=== PATIENT | female | born 1995 | race Caucasian/White ===

== ENCOUNTER 2021-08-23 11:24 | Outpatient (CLI) | payer OTHER, SELFPAY ==
--- NOTE | ~2021-08-23 | US_ITS ---
EXAMINATION: US transvaginal DATE: 08/23/2021 12:18 INDICATION: Ovarian cysts Comparison:Pelvic pain TECHNIQUE: Multiple transabdominal and endovaginal sonographic images of the pelvis performed. FINDINGS: The uterus measures 6.2 x 3.8 x 4.2 cm. The endometrial complex measures 7 mm. The right ovary measures 2.5 x 2.6 x 2.4 cm and the left ovary measures 5.2 x 2.7 x 4.3 cm. Interval resolution of right ovarian cyst. There are left ovarian cyst, largest measuring 2.9 cm with a smalle r 2 cm cyst. Small amount of free fluid in the pelvis. IMPRESSION: 1. Left ovarian cysts, largest measuring 2.9 cm maximum dimension. Reviewed, dictated and finalized at location A.
== END 2021-08-23 11:25 ==
LOC: MICIMG 11:26
PROVIDERS: Visit Provider Obstetrics & Gynecology
DX: R10.2 Pelvic and perineal pain (principal); N83.202 Unspecified ovarian cyst, left side
CPT/HCPCS: 76830

== ENCOUNTER 2023-04-06 14:35 | Emergency (ER) | payer OTHER, SELFPAY ==
--- NOTE | ~2023-04-06 | XR_ITS ---
EXAM: XR knee LT min 4V DATE: 04/06/2023 15:06 HISTORY: FALL, INJURY, PAIN . COMPARISON: None available. FINDINGS: Normal mineralization. No fracture or dislocation. No lytic or blastic lesion. Joint space s are maintained. No erosion or periosteal change. Soft tissues within normal limits. Small knee join t effusion. IMPRESSION: No acute osseous finding in the left knee. Reviewed, dictated and finalized at location K.
[2023-04-06 15:53] VITALS: BP 119/72; PULSE 72; RESP 16; TEMP 36.3; O2SAT 100
--- NOTE | 2023-04-06 18:16 | ED.LOWEXIN ---
HPI - Extremity Injury (Lower) General Chief Complaint: Extremity Injury, Lower Stated Complaint: LEFT KNEE INJURY Time Seen by Provider: 04/06/23 17:40 History of Present Illness HPI Narrative: 27-year-old female reports for evaluation of left knee pain after she fell 5 hours ago. Patient states she was at work and tripped over a drain that is not flush with the floor. States when she tripped, she landed directly on her left knee and has had pain since. She reports swelling, bruising and tenderness to the anterior aspect of the left knee. She is able to walk with a limp. Denies paresthesias, fever, other injuries. She did not hit her head or lose consciousness during the fall. Related Data Allergies Allergy/AdvReac Type Severity Reaction Status Date / Time amoxicillin Allergy Mild Unknown Verified 04/06/23 17:50 Review of Systems Review of Systems: CONSTITUTIONAL: Denies fever, chills EYES: Denies visual changes, redness, or discharge. ENT: Denies rhinorrhea, congestion, sore throat, or otalgia. CARDIOVASCULAR: Denies chest pain, palpitations, or edema. RESPIRATORY: Denies cough or dyspnea. GASTROINTESTINAL: Denies abdominal pain, nausea, vomiting, or diarrhea. GENITOURINARY: Denies dysuria or hematuria. SKIN: Denies rash or itching. MUSCULOSKELETAL: See HPI NEUROLOGIC: Denies headache, numbness, dizziness, or weakness. PSYCHIATRIC: Denies anxiety or depression. [facility] Past Medical History Medical History BMI 36.0-36.9,adult BMI 37.0-37.9, adult COVID Recurrent depression Tarsal tunnel syndrome Family History Family History Father IBS (irritable bowel syndrome) Arthritis, rheumatoid Depression Hypertension Hyperlipidemia Mother Obesity Sibling No problems noted. Other Diabetes mellitus Family history of coronary artery disease Social History Social History Smoking status: Never smoker Tobacco type: e-cigarettes/vaping Second hand tobacco smoke exposure: Yes Alcohol intake: current Substance use: former Substance use type: marijuana Living arrangements: with family Occupation/Education: unemployed Gender identity (if verbalized by the patient): Female Exam Narrative: GENERAL: Well-appearing, in no acute distress. HEAD: Normocephalic NECK: Supple. CHEST: No respiratory distress. Clear to auscultation, no adventitious breath sounds. HEART: Regular rate and rhythm. No murmur heard. Normal peripheral pulses. EXTREMITIES: LLE: Tenderness to the medial and lateral knee joint lines with ecchymosis inferior to the patella. No tenderness to remainder of knee or lower extremity. Full passive and active range of motion. No varus or valgus laxity. Negative anterior posterior drawer. DP pulse 2+. Sensation intact throughout. No overlying erythema or warmth to knee. SKIN: Warm, dry, no rash. NEURO: No focal deficits. Alert and oriented x3. PSYCH: Normal mood and affect. Course Vital Signs Vital signs: Vital Signs Temperature 97.3 F L 04/06/23 15:53 Pulse Rate 72 04/06/23 15:53 Respiratory Rate 16 04/06/23 15:53 Blood Pressure 119/72 04/06/23 15:53 Pulse Oximetry 100 04/06/23 15:53 Oxygen Delivery Room Air 04/06/23 15:53 Temperature 97.3 F L 04/06/23 15:53 Pulse Rate 72 04/06/23 15:53 Respiratory Rate 16 04/06/23 15:53 Blood Pressure 119/72 04/06/23 15:53 Pulse Oximetry 100 04/06/23 15:53 Oxygen Delivery Room Air 04/06/23 15:53 MDM - Extremity Injury (Lower) MDM Narrative Medical decision making narrative: 27-year-old female reports for evaluation of left knee pain after a fall that occurred 5 hours prior to arrival. Vitals stable. Exam reveals tenderness to the medial lateral joint lines with ecchymosis inferior to the patella. No overlyin
== END 2023-04-06 18:50 | disposition home or self-care (01) ==
PROVIDERS: Emergency Provider Physician Assistant; PCP Family Medicine
DX: S80.02XA Contusion of left knee, initial encounter (principal); Z86.16 Personal history of COVID-19; Z77.22 Contact with and (suspected) exposure to environmental tobacco smoke (acute) (chronic); W18.09XA Striking against other object with subsequent fall, initial encounter
CPT/HCPCS: 73564; 99283

== ENCOUNTER 2023-05-22 14:02 | Emergency (ER) | payer BC, OTHER, SELFPAY ==
--- NOTE | ~2023-05-22 | XR_ITS ---
EXAMINATION: XR foot RT 2V DATE: 05/22/2023 15:07 INDICATION: Right foot pain. TECHNIQUE: 2 views of right foot were obtained. COMPARISON: Right foot radiograph 05/07/2010 FINDINGS: Bone alignment is normal. No fracture. There is mild osteoarthritis of first metatarsophala ngeal joint. There are enthesophytes at the posterior and plantar aspects of calcaneal tuberosity. IMPRESSION: 1. Mild osteoarthritis of first metatarsophalangeal joint. Reviewed, dictated and finalized at location E.
[2023-05-22 14:16] VITALS: BP 142/83; PULSE 88; RESP 18; TEMP 36.1; O2SAT 100
--- NOTE | 2023-05-22 15:34 | ED.GENADULT ---
HPI - General Adult General Chief complaint: Extremity Injury, Lower Stated complaint: R foot injury Time Seen by Provider: 05/22/23 14:51 Source: patient Mode of arrival: ambulatory Limitations: no limitations History of Present Illness HPI narrative: This is a 27-year-old female who presents to the ED with chief complaint of right foot pain following an injury last night. Patient states that she stepped on it wrong while walking in the rain and felt a pop. She reports history of plantar fasciitis and is concerned for a tear. She denies bruising. She has been using a walking boot that she has at home already. Denies any numbness or weakness. Related Data Allergies Allergy/AdvReac Type Severity Reaction Status Date / Time amoxicillin Allergy Mild Unknown Verified 05/22/23 15:06 [facility] Past Medical History Medical History BMI 36.0-36.9,adult BMI 37.0-37.9, adult COVID Recurrent depression Tarsal tunnel syndrome Family History Family History Father IBS (irritable bowel syndrome) Arthritis, rheumatoid Depression Hypertension Hyperlipidemia Mother Obesity Sibling No problems noted. Other Diabetes mellitus Family history of coronary artery disease Social History Social History Smoking status: Never smoker Tobacco type: e-cigarettes/vaping Second hand tobacco smoke exposure: Yes Alcohol intake: current Substance use: former Substance use type: marijuana Living arrangements: with family Occupation/Education: unemployed Gender identity (if verbalized by the patient): Female Exam Narrative: GENERAL: Well-appearing, well-nourished, and in no acute distress. HEAD: Normocephalic, atraumatic. EYES: PERRLA and EOMI. ENT: Nares clear, no rhinorrhea or epistaxis. Mucous membranes moist. Oropharynx without tonsillar hypertrophy exudate or other lesions. NECK: Supple. No adenopathy or masses. CHEST: No respiratory distress. Clear to auscultation. No wheezes rales or rhonchi HEART: Regular rate and rhythm. No murmur heard. Normal peripheral pulses. ABDOMEN: Soft, nontender, nondistended, normal active bowel sounds. MSK: Tenderness to the palmar right foot diffusely. No bruising or crepitus. No deformity. No further site of tenderness. Neurovascular intact distally SKIN: Warm, dry, no rash. NEURO: Alert and oriented x3. No focal deficits. PSYCH: Normal mood and affect. Course Vital Signs Vital signs: Vital Signs Temperature 97 F L 05/22/23 14:16 Pulse Rate 88 05/22/23 14:16 Respiratory Rate 18 05/22/23 14:16 Blood Pressure 142/83 H 05/22/23 14:16 Pulse Oximetry 100 05/22/23 14:16 Oxygen Delivery Room Air 05/22/23 14:16 Temperature 97 F L 05/22/23 14:16 Pulse Rate 88 05/22/23 14:16 Respiratory Rate 18 05/22/23 14:16 Blood Pressure 142/83 H 05/22/23 14:16 Pulse Oximetry 100 05/22/23 14:16 Oxygen Delivery Room Air 05/22/23 14:16 Medical Decision Making [facility] Narrative Medical decision making narrative: This is a 27-year-old female presents to the ED with chief complaint of right foot pain. Vitals are normal. Exam shows tenderness along the plantar fascia. She has known plantar fasciitis, and her symptoms are consistent with a flareup of this. No evidence of significant trauma on exam. X-rays are negative for any acute findings. Advised that she continue to follow-up with her orthopedic doctor for further management of this. She is understanding and agreeable with plan for discharge and follow-up. Supportive measures discussed and return precautions given. Vital Signs Vital Signs: Vital Signs Temperature 97 F L 05/22/23 14:16 Pulse Rate 88 05/22/23 14:16 Respiratory Rate 18 05/22/23 14:16 Blood Pressure 142/83 H 05/22/23 14:16 Pulse Oxim
== END 2023-05-22 15:49 | disposition home or self-care (01) ==
PROVIDERS: Emergency Provider Physician Assistant; PCP Family Medicine
DX: M72.2 Plantar fascial fibromatosis (principal)
CPT/HCPCS: 73620; 99283

== ENCOUNTER 2023-10-08 16:32 | Emergency (ER) | payer OTHER, SELFPAY ==
[2023-10-08] VITALS (14 sets, daily range): BP systolic 114–142; BP diastolic 56–87; PULSE 66–81; RESP 14–18; TEMP 36.4; O2SAT 97–100
--- NOTE | ~2023-10-08 | CT_ITS ---
EXAMINATION: CT abdomen pelvis w con DATE: 10/08/2023 21:47 INDICATION: Epigastric tenderness to palpation TECHNIQUE: Computed tomography (CT) of the abdomen and pelvis was performed with 100 mL Omnipaque-350 intravenous contrast. Automated exposure control and iterative reconstruction technique were employe d. The dose-length product was 1388.49 mGy-cm. COMPARISON: None FINDINGS: Mild dependent atelectasis in the bilateral lower lobes. Arch size is normal. No pericardial or pleur al effusion. Liver, gallbladder, spleen, pancreas, bilateral adrenal glands and kidneys are normal. T here is subtle stranding in the right upper quadrant between the gallbladder and duodenum which raise s the possibility of acute cholecystitis, duodenitis or potentially pancreatitis although each struct ure appears otherwise normal. Bowels including the appendix are normal. 3.5 cm left adnexal cyst. The right adnexa, bladder and uterus are unremarkable. Minimal likely physiologic free fluid in the pelv is. No pathologically enlarged abdominal or pelvic lymphadenopathy. Mild to moderate lower lumbar pre dominant facet osteoarthritis. IMPRESSION: 1. Subtle stranding in the right upper quadrant between the normal-appearing gallbladder and duodenum raising suspicion for early acute cholecystitis with differential including duodenitis or pancreatit is. Correlate with lipase levels and consider right upper quadrant ultrasound for further evaluation. Reviewed, dictated and finalized at location A. VE SEPARATOR IMPRESSION: 1. Subtle stranding in the right upper quadrant between the normal-appearing ga llbladder and duodenum raising suspicion for early acute cholecystitis with dif ferential including duodenitis or pancreatitis. Correlate with lipase levels an d consider right upper quadrant ultrasound for further evaluation.
--- NOTE | 2023-10-08 19:14 | ED.NAVMDI ---
HPI - Nausea/Vomiting/Diarrhea General Chief complaint: Nausea/Vomiting/Diarrhea Stated complaint: food poisoning Time Seen by Provider: 10/08/23 19:13 Source: patient and family ( brother and later mother) Limitations: no limitations History of Present Illness HPI Narrative: this is a 28-year-old female who presents with complaint of nausea, vomiting, and diarrhea that started approximately 1:00 a.m. this morning. Patient is concerned she has food poisoning although no other people who ate similar food items are symptomatic. She denies any blood in the emesis or in stool. She is having epigastric abdominal pain. No prior abdominal surgeries. She believes she has had 9 episodes of watery stool and dozens of episodes of Nonbilious emesis. she states her last menstrual period was 3 weeks ago and was heavy but otherwise normal in terms of duration. She denies any other vaginal discharge but does endorse that she has had unprotected sex with a new sexual partner in the past month. Denies marijuana usage (formerly used but not recently). Related Data Home Medications Medication Instructions Recorded Confirmed valacyclovir 1 gram tablet 1,000 mg PO DAILY PRN 05/31/23 05/31/23 (Valtrex) Allergies Allergy/AdvReac Type Severity Reaction Status Date / Time amoxicillin Allergy Mild Unknown Verified 05/31/23 09:44 PMF[facility] Past Medical History Medical History BMI 36.0-36.9,adult BMI 37.0-37.9, adult COVID Recurrent depression Tarsal tunnel syndrome Family History Family History Father IBS (irritable bowel syndrome) Arthritis, rheumatoid Depression Hypertension Hyperlipidemia Mother Obesity Biliary colic UTI (urinary tract infection) Sibling No problems noted. Other Diabetes mellitus Family history of coronary artery disease Social History Social History Smoking status: Never smoker Tobacco type: e-cigarettes/vaping Second hand tobacco smoke exposure: Yes Alcohol intake: current Substance use: former Substance use type: marijuana Living arrangements: with family Occupation/Education: unemployed Gender identity (if verbalized by the patient): Female Exam Narrative: GENERAL: Well-appearing, well-nourished, appears uncomfortable HEAD: Normocephalic, atraumatic. EYES: non injected, non icteric ENT: Nares clear, no rhinorrhea or epistaxis. Mucous membranes moist. NECK: Supple. CHEST: speaking in full sentences. No respiratory distress. HEART: Regular rate and rhythm. ABDOMEN: Soft, nondistended. Epigastric tenderness to palpation and RUQ TTP. Voss sign positive. No rigidity, not peritoneal. EXTREMITIES: Normal range of motion. No edema. SKIN: Warm, dry, no rash. NEURO: No focal deficits. Alert and oriented x3. PSYCH: Normal mood and affect. Course Vital Signs Vital signs: Vital Signs Temperature 97.5 F L 10/08/23 16:34 Pulse Rate 81 10/08/23 16:34 Respiratory Rate 18 10/08/23 16:34 Blood Pressure 142/87 H 10/08/23 16:34 Pulse Oximetry 100 10/08/23 16:34 Oxygen Delivery Room Air 10/08/23 16:34 Temperature 97.5 F L 10/08/23 16:34 Pulse Rate 78 10/08/23 22:23 Respiratory Rate 14 10/08/23 22:23 Blood Pressure 114/56 L 10/08/23 22:23 Pulse Oximetry 100 10/08/23 22:23 Oxygen Delivery Room Air 10/08/23 16:34 MDM - Nausea/Vomiting/Diarrhea MDM Narrative Medical decision making narrative: This is a 28-year-old female who presents with nausea, vomiting, and diarrhea since 1:00 a.m. this morning. She does have epigastric tenderness to palpation as well as RUQ tenderness. We will obtain labs (CMP, lipase, CBC) and UA with test while giving IV fluids and antiemetics. Patient is symptomatically treated. On reassessment she continues to
[2023-10-08] MEDS: ONDANSETRON INJ 4 MG/2 ML VIAL IV PUSH (19:45)
[2023-10-08] MEDS: SODIUM CHLORIDE 0.9% IV 1,000 ML 999 ML IV CONT (19:47)
--- NOTE | 2023-10-08 19:55 | PC.NURSE ---
Pt aware of need for urine sample. IVF infusing at this time.
[2023-10-08 20:07] LABS: Basophils Percent Auto 0.2 % (0.2-1.2); Eosinophils Percent Auto 0.1 % (0-4.4); Hematocrit 46.3 % (37.0-47.0); Hemoglobin 15.8 g/dL (12.0-15.0); Immature Granulocyte Absolute 0.08 K/mm3 (0.00-0.031); Immature Granulocyte Percent A 0.5 % (0-0.5); Lymphocytes Absolute Auto 1.39 K/mm3 (0.9-3.2); Lymphocytes Percent Auto 8.4 % (18.3-44.2); Mean Corpuscular HGB Conc 34.1 g/dl (32-36); Mean Corpuscular Hemoglobin 29.4 pg (26-34); Mean Corpuscular Volume 86.1 fl (80-100); Mean Platelet Volume 10.6 fl (7.4-10.4); Monocytes Absolute Auto 0.8 K/mm3 (0.1-0.6); Neutrophils Absolute Auto 14.2 K/mm3 (1.3-6.7); Neutrophils Percent Auto 85.8 % (45.5-73.1); Platelet Count Result 320 k/mm3 (150-375); Red Blood Count 5.38 M/mm3 (4.2-5.4); Red Cell Distribution Width 12.2 % (11.5-14.5); White Blood Count 16.5 K/mm3 (4.5-10.0)
[2023-10-08 20:17] LABS: Alanine Aminotransferase 36 U/L (6-35); Albumin Level 5.1 g/dL (3.5-5.1); Alkaline Phosphatase 56 U/L (38-126); Anion Gap 12 mmol/L (8-16); Aspartate Amino Transferase 28 U/L (14-36); Bilirubin,Total 0.8 mg/dL (0.2-1.3); Blood Urea Nitrogen 13 mg/dL (7-17); Calcium 10.9 mg/dL (8.4-10.2); Carbon Dioxide 28 mmol/L (22-30); Chloride 100 mmol/L (98-107); Estimated CRCL calculation 119 ml/min; Estimated Glomerular Filt Rate > 60; Glucose 110 mg/dL (65-110); Lipase 79 U/L (23-300); Potassium 3.9 mmol/L (3.4-5.0); Sodium 140 mmol/L (137-145)
[2023-10-08 20:43] LABS: Influenza A QL RT-PCR Negative (Negative); Influenza B QL RT-PCR Negative (Negative); SARS-CoV-2 RNA PCR Negative (Negative)
[2023-10-08 21:32] LABS: Appearance Urine Cloudy (Clear); Bacteria Urine 1+ /hpf; Bilirubin Urine Negative (Negative); Blood Urine Negative (Negative); Color Urine Yellow (Yellow); Glucose Urine UA Negative (Negative); Ketones Urine 3+ mg/dL (Negative); Leukocyte Esterase Ur Trace LEU/UL (Negative); Nitrate Urine Negative (Negative); Non Pathogenic Casts 0-2; Protein Urine Negative (Negative); RBC Urine 0-2 /hpf (0-2); Specific Grav Ur 1.029 (1.001-1.035); Squamous Epithelial Cell Urine Few /hpf (Few); Urobilinogen Urine 0.2 mg/dL (<2.0); pH Urine 5.5 (5.0-9.0)
[2023-10-08] MEDS: PROCHLORPERAZINE EDISYLATE 10 MG/2 ML VIAL IV PUSH (21:32)
[2023-10-08 21:35] LABS: Add Urine Microscopic? YES
[2023-10-08] MEDS: MORPHINE SULFATE (*CRX) 4 MG/ML INJ IV PUSH (22:22)
== END 2023-10-08 23:44 | disposition home or self-care (01) ==
PROVIDERS: Emergency Provider Student in an Organized Health Care Education/Training Program; PCP Family Medicine
DX: N39.0 Urinary tract infection, site not specified (principal); K80.50 Calculus of bile duct without cholangitis or cholecystitis without obstruction; Z20.822 Contact with and (suspected) exposure to COVID-19; Z86.16 Personal history of COVID-19; Z77.22 Contact with and (suspected) exposure to environmental tobacco smoke (acute) (chronic)
CPT/HCPCS: 36415; 74177; 80053; 81001; 81025; 82248; 83690; 85025; 87086; 87636; 96361; 96365; 96375; 99284; J0696; J0780; J2270; J2405; J7030; Q9967